=== PATIENT | male | born 1985 | race Caucasian/White ===

== ENCOUNTER 2017-08-05 23:03 | Emergency (ER) | payer BC ==
[~2017-08-05] VITALS: Ht 177.8 cm; Wt 124.0 kg
[~2017-08-05 23:03] MED LIST: NAPR500 PO; Z.0.NO CURRENT MEDS
[2017-08-05 23:20] VITALS: BP 160/97; PULSE 96; RESP 18; TEMP 99; O2SAT 97
[2017-08-05] MEDS ORDERED: IBUP-232 PO (23:37)
--- NOTE | 2017-08-06 01:56 | PD ---
HPI Chief Complaint: Oral / Dental Pain or Problem Time Seen by Provider: 01:40 Travel History International Travel<30 days: No Contact w/Intl Traveler<30days: No Traveled to known affect area: No History of Present Illness HPI The patient is a 31-year-old male that complains of right upper canine tooth pain since Sunday. He states that he has been taking ibuprofen with good relief but started to wear off. He denies any fever. He can feel some slight swelling in the soft tissues around the canine tooth. He has not called a dentist yet. He denies any fever. PFS Past Medical History Diminished Hearing: No ?: Not Social History Alcohol Use: Yes (RARE) Tobacco Use: No Substance Use: No Allergies-Medications (Allergen,Severity, Reaction): Coded Allergies: No Known Allergies (Unverified Adverse Reaction, Unknown, 08/05/17) Reported Meds & Prescriptions Reported Meds & Active Scripts Active Reported Ibuprofen 600 Mg Tab 600 Mg PO Q6H PRN Review of Systems Except as stated in HPI: all other systems reviewed are Neg Physical Exam Narrative GENERAL: Well-nourished, well-developed patient in slight apparent distress with his dental pain. His vital signs show heart rate of 96, blood pressure 160 /97 but are otherwise normal. SKIN: Focused skin assessment warm/dry. HEAD: Normocephalic. EYES: No scleral icterus. No injection or drainage. NECK: Supple, trachea midline. No JVD or lymphadenopathy. CARDIOVASCULAR: Regular rate and rhythm without murmurs, gallops, or rubs. RESPIRATORY: Breath sounds equal bilaterally. No accessory muscle use. GASTROINTESTINAL: Abdomen soft, non-tender, nondistended. MUSCULOSKELETAL: No cyanosis, or edema. BACK: Nontender without obvious deformity. No CVA tenderness. DENTAL: No loose or chipped teeth. No malocclusion. There is exquisite tenderness on the right canine tooth. There is associated soft tissue swelling of the upper lip. No drainable dental abscesses are noted. Data Data Last Documented VS Vital Signs Date Time Temp Pulse Resp B/P (MAP) Pulse Ox O2 Delivery O2 Flow Rate FiO2 08/05/17 23:20 99.0 96 18 160/97 (118) 97 Orders Orders Ed Discharge Order (08/06/17 01:56) Amoxicillin (Trimox) (08/06/17 02:00) MDM Medical Decision Making Medical Screen Exam Complete: Yes Emergency Medical Condition: Yes Medical Record Reviewed: Yes Differential Diagnosis Dental infection, drainable dental abscess, cellulitis, gingivitis Narrative Course The patient has a dental infection. He will be given amoxicillin 875 twice daily for 10 days and is given a refill to give him time to make a dental appointment. He will be given Motrin 803 times a day. He is to follow-up with a dentist. Diagnosis Primary Impression: Dental infection Additional Instructions: The antibiotic is one tablet twice daily. Follow-up with a dentist as soon as possible. Ibuprofen is one tablet 3 times daily. Med/Other Pt SpecificInfo: Prescription(s) given Scripts Ibuprofen (Ibuprofen) 800 Mg Tab 800 MG PO TID, #44 TAB 0 Refills Prov: Chon Yip MD 08/06/17 Amoxicillin (Amoxicillin) 875 Mg Tab 875 MG PO BID for Infection for 10 Days, #20 TAB 0 Refills Prov: Chon Yip MD 08/06/17 Disposition: 01 DISCHARGE HOME Condition: Stable Chon Yip MD Aug 06, 2017 01:56
[2017-08-06] MEDS ORDERED: AMOXICILLIN 875 MG TAB PO ONE (02:00)
[2017-08-06] MEDS ORDERED: IBUP1TAB7 PO (02:03)
[2017-08-06] MEDS ORDERED: AMOX875T PO (02:03)
[2017-08-06] MEDS ORDERED: KETOROLAC TROMETHAMINE 60 MG/2 ML (IM) VIAL IM ONE (02:15)
[2017-08-06 02:24] VITALS: BP 147/88
== END 2017-08-06 02:25 | disposition home or self-care (01) ==
LOC: PHED 23:03
DX: K04.7 Periapical abscess without sinus (principal)
CPT/HCPCS: 96372; 99284; J1885

== ENCOUNTER 2017-12-22 15:13 | Inpatient (IN) | payer BC ==
[2017-12-22] VITALS (9 sets, daily range): BP systolic 127–171; BP diastolic 71–87; PULSE 93–129; RESP 20–26; TEMP 99–103.1; O2SAT 89–95
[~2017-12-22] VITALS: Ht 177.8 cm; Wt 123.0 kg
[~2017-12-22 15:13] MED LIST changes: +AMOX875T PO; +IBUP-232 PO; +IBUP1TAB7 PO; -NAPR500 PO; -Z.0.NO CURRENT MEDS
[2017-12-22] MEDS ORDERED: SODIUM CHLOR 0.9% 1000 ML INJ 1,000 ML IV ONE ×2 (15:45)
[2017-12-22] MEDS ORDERED: ACETAMINOPHEN 325 MG TAB PO ONE ×2 (15:45)
[2017-12-22] MEDS ORDERED: IBUPROFEN 600 MG TAB PO ONE (15:45)
--- NOTE | 2017-12-22 15:51 | PD ---
HPI Chief Complaint: Fever Time Seen by Provider: 15:30 Travel History International Travel<30 days: No Contact w/Intl Traveler<30days: No Traveled to known affect area: No History of Present Illness HPI This patient complains of fever. He has cough which is dry. He has some dyspnea. Symptoms are worse with exertion. Symptoms are severe. Temperature 103. Duration 4 days. He denies medical history. He has no urinary complaints or vomiting or diarrhea or runny nose. He went to an urgent care and had a negative flu test and was sent here. No alleviating factors. PFSH Past Medical History Medical History: Denies Significant Hx Diminished Hearing: No Immunizations Current: Yes Tetanus Vaccination: < 5 Years Influenza Vaccination: No Past Surgical History Surgical History: No Previous Surgery Social History Alcohol Use: Yes (RARE) Tobacco Use: No Substance Use: No Allergies-Medications (Allergen,Severity, Reaction): Coded Allergies: No Known Allergies (Unverified Adverse Reaction, Unknown, 12/22/17) Reported Meds & Prescriptions Reported Meds & Active Scripts Active No Active Prescriptions or Reported Medications Review of Systems General / Constitutional: Positive: Fever Eyes: No: Visual changes HENT: No: Headaches Cardiovascular: No: Chest Pain or Discomfort Respiratory: Positive: Cough, Shortness of Breath Gastrointestinal: No: Abdominal Pain Genitourinary: No: Dysuria Musculoskeletal: No: Pain Skin: No Rash Neurologic: No: Weakness Psychiatric: No: Depression Endocrine: No: Polydipsia Hematologic/Lymphatic: No: Easy Bruising Physical Exam Narrative GENERAL: Well-nourished, well-developed patient who is febrile and short of breath SKIN: Focused skin assessment reveals no rash and nodules. Skin is Warm and dry. HEAD: Atraumatic. Normocephalic. EYES: Pupils equal and round. No scleral icterus. No injection or drainage. ENT: No nasal bleeding or discharge. Mucous membranes pink and moist. No tonsillar exudate NECK: Trachea midline. No JVD. No meningeal signs CARDIOVASCULAR: Regular rate and rhythm. No murmur appreciated. RESPIRATORY: No accessory muscle use. Some left base crackles. Breath sounds equal bilaterally. Occasional wheeze GASTROINTESTINAL: Abdomen soft, non-tender, nondistended. Hepatic and splenic margins not palpable. MUSCULOSKELETAL: No obvious deformities. No clubbing. No cyanosis. No edema. NEUROLOGICAL: Awake and alert. No obvious cranial nerve deficits. Motor grossly within normal limits. Normal speech. PSYCHIATRIC: Appropriate mood and affect; insight and judgment normal. Data Data Last Documented VS Vital Signs Date Time Temp Pulse Resp B/P (MAP) Pulse Ox O2 Delivery O2 Flow Rate FiO2 12/22/17 15:43 129 25 171/77 (108) 89 Nasal Cannula 2.00 12/22/17 15:16 103.1 Orders Orders Sepsis Workup Initiated (12/22/17 ) Complete Blood Count With Diff (12/22/17 15:40) Comprehensive Metabolic Panel (12/22/17 15:40) Lactic Acid Sepsis Protocol (12/22/17 15:40) Urinalysis - C+S If Indicated (12/22/17 15:40) Blood Culture (12/22/17 15:40) Pneumococcal Urinary Antigen (12/22/17 15:40) Legionella Urinary Antigen (12/22/17 15:40) Chest, Single Ap (12/22/17 15:40) Ecg Monitoring (12/22/17 15:40) Iv Access Insert/Monitor (12/22/17 15:40) Oximetry (12/22/17 15:40) Oxygen Administration (12/22/17 15:40) Acetaminophen (Tylenol) (12/22/17 15:45) Acetaminophen (Tylenol) (12/22/17 15:45) Ibuprofen (Motrin) (12/22/17 15:45) Sodium Chlor 0.9% 1000 Ml Inj (Ns 1000 M (12/22/17 15:45) Sodium Chlor 0.9% 1000 Ml Inj (Ns 1000 M (12/22/17 15:45) Ceftriaxone Inj (Rocephin Inj) (12/22/17 15:45) Albuterol-Ipratropium Neb (Duoneb Neb) (12/22/17 16:00) Admit Order (Ed Use Only) (12/22/17 17:05) Labs Laboratory Tests Test 12/22/17 15:40 12/22/17 16:36 White Blood Count 13.1 TH/MM3 Red Blood Count 5.63 MIL/MM3 Hemoglobin 15.6 GM/DL Hematocrit 46.7 % Mean Corpuscular Volume 82.9 FL Mean Corpuscular Hemoglobin 27.7 PG Mean Corpuscular Hemoglobin Concent 33.4 % Red Cell Distribution Width 13.8 % Platelet Count 233 TH/MM3 Mean Platelet Volume 9.8 FL Neutrophils (%) (Auto) 90.0 % Lymphocytes (%) (Auto) 4.4 % Monocytes (%) (Auto) 3.9 % Eosinophils (%) (Auto) 0.1 % Basophils (%) (Auto) 1.6 % Neutrophils # (Auto) 11.8 TH/MM3 Lymphocytes # (Auto) 0.6 TH/MM3 Monocytes # (Auto) 0.5 TH/MM3 Eosinophils # (Auto) 0.0 TH/MM3 Basophils # (Auto) 0.2 TH/MM3 CBC Comment DIFF FINAL Differential Comment Blood Urea Nitrogen 11 MG/DL Creatinine 0.81 MG/DL Random Glucose 124 MG/DL Total Protein 7.4 GM/DL Albumin 3.3 GM/DL Calcium Level 7.7 MG/DL Alkaline Phosphatase 106 U/L Aspartate Amino Transf (AST/SGOT) 16 U/L Alanine Aminotransferase (ALT/SGPT) 31 U/L Total Bilirubin 0.4 MG/DL Sodium Level 135 MEQ/L Potassium Level 3.5 MEQ/L Chloride Level 103 MEQ/L Carbon Dioxide Level 22.3 MEQ/L Anion Gap 10 MEQ/L Estimat Glomerular Filtration Rate 111 ML/MIN Lactic Acid Level 1.1 mmol/L MDM Medical Decision Making Medical Screen Exam Complete: Yes Emergency Medical Condition: Yes Medical Record Reviewed: Yes Differential Diagnosis Sepsis, bacteremia, pneumonia Narrative Course I have reviewed the patient's electronic medical record. This patient arrives with concern for sepsis. He is febrile tachycardic and dyspneic. 2 blood culture sets obtained I gave him 1 g IV Rocephin and labs sent Gave him Tylenol Motrin for fever I reviewed his chest x-ray which suggest a bronchopneumonia type pattern. No diffuse consolidation. No pneumothorax or pulmonary edema Gave him 2 nebulizer treatments White count is 13,000 metabolic profile normal Lactate is normal Patient has acute hypoxic respiratory failure and will require inpatient hospitalization. Seems to have a community acquired pneumonia I reviewed with the hospitalist who will admit On 3 L nasal cannula he has 95% saturation Critical Care Narrative Aggregate critical care time was 35 minutes. Time to perform other separately billable procedures was not included in the critical care time. My time did not include minutes spent treating any other patients simultaneously or on activities that did not directly contribute to the patient's treatment. The services I provided to this patient were to treat and/or prevent clinically significant deterioration that could result in: Cardiopulmonary arrest, hypoxemic brain injury, respiratory collapse I provided critical care services requiring my management, as noted below: Chart data review, documentation time, medication orders and management, vital sign assessments/reviewing monitor data, ordering and reviewing lab tests, ordering and interpreting/reviewing x-rays and diagnostic studies, care of the patient and discussion of the patient with the admitting physicians. Diagnosis Primary Impression: Acute respiratory failure with hypoxia Additional Impression: Community acquired pneumonia Qualified Codes: J18.9 - Pneumonia, unspecified organism Admitting Information Admitting Physician Requests: Admit Scripts No Active Prescriptions or Reported Meds Sean Burgess MD Dec 22, 2017 15:51
[2017-12-22 15:57] LABS: AUTOMATED NEUTROPHIL # 11.8 TH/MM3 (1.8-7.7); BASOPHIL # 0.2 TH/MM3 (0-0.2); BASOPHIL % 1.6 % (0.0-2.0); EOSINOPHIL % 0.1 % (0.0-4.0); HEMATOCRIT 46.7 % (39.0-51.0); HEMOGLOBIN 15.6 GM/DL (13.0-17.0); LYMPH % 4.4 % (9.0-44.0); LYMPHOCYTE # 0.6 TH/MM3 (1.0-4.8); MEAN CELL VOLUME 82.9 FL (80.0-100.0); MEAN CORPUSCULAR HEMOGLOBIN 27.7 PG (27.0-34.0); MEAN CORPUSCULAR HGB CONC 33.4 % (32.0-36.0); MEAN PLATELET VOLUME 9.8 FL (7.0-11.0); MONO % 3.9 % (0.0-8.0); MONOCYTE # 0.5 TH/MM3 (0-0.9); PLATELET COUNT 233 TH/MM3 (150-450); RED BLOOD COUNT 5.63 MIL/MM3 (4.50-5.90); RED CELL DISTRIBUTION WIDTH 13.8 % (11.6-17.2); WHITE BLOOD COUNT 13.1 TH/MM3 (4.0-11.0)
[2017-12-22] MEDS ORDERED: RESP: ALBUTEROL 2.5 MG/IPRATROPIUM 0.5 MG NEB (SCH) NEB ONE (16:00)
[2017-12-22] MEDS: cefTRIAXone INJ 1,000 MG in SODIUM CHLORIDE 0.9% INJ 100 ML IV ONE ×2 (16:12→16:28)
--- NOTE | 2017-12-22 16:16 | RADRPT ---
EXAM DATE: 12/22/2017 3:59 PM EDT AGE/SEX: 32 years / Male INDICATIONS: Fever, cough, short of breath CLINICAL DATA: This is the patient's initial encounter. Patient reports that signs and symptoms have been present for 3 days and indicates a pain score of 0/10. MEDICAL/SURGICAL HISTORY: None. None. COMPARISON: No prior exams available for comparison. FINDINGS: Exam performed at low lung volumes. Subsegmental airspace disease at both lung bases. No effusion. No pneumothorax. Heart size upper limits normal. CONCLUSION: Subsegmental basilar airspace disease. Differential diagnosis includes atelectasis or bronchopneumoni a. Electronically signed by: Manuel Bee MD 12/22/2017 4:15 PM EDT
[2017-12-22 16:56] LABS: CHLORIDE 103 MEQ/L (98-107); SODIUM (NA) 135 MEQ/L (136-145)
[2017-12-22 16:59] LABS: ALBUMIN 3.3 GM/DL (3.4-5.0); BICARBONATE 22.3 MEQ/L (21.0-32.0); CALCIUM 7.7 MG/DL (8.5-10.1); GLUCOSE,RANDOM 124 MG/DL (74-106)
[2017-12-22 17:00] LABS: BLOOD UREA NITROGEN 11 MG/DL (7-18)
[2017-12-22 17:02] LABS: ALT (GPT) 31 U/L (12-78)
[2017-12-22 17:03] LABS: AST (GOT) 16 U/L (15-37); CREATININE 0.81 MG/DL (0.60-1.30); GLOMERULAR FILTRATION RATE 111 ML/MIN (>89)
[2017-12-22 17:04] LABS: TOTAL BILIRUBIN ADULT 0.4 MG/DL (0.2-1.0); TOTAL PROTEIN 7.4 GM/DL (6.4-8.2)
[2017-12-22 17:05] LABS: ALKALINE PHOSPHATASE 106 U/L (45-117)
[2017-12-22] MEDS ORDERED: BISACODYL 10 MG SUPP RECTAL PRN (17:30)
[2017-12-22] MEDS ORDERED: SODIUM CHLORIDE 0.9% FLUSH 10 ML FLUSH IV FLUSH PRN (17:30)
[2017-12-22] MEDS ORDERED: SENNOSIDES 8.6 MG TAB PO PRN (17:30)
[2017-12-22] MEDS ORDERED: NALOXONE HCL 0.4 MG/ML AMP IV PUSH PRN (17:30)
[2017-12-22] MEDS ORDERED: MAGNESIUM HYDROXIDE SUSP 30 ML CUP PO PRN (17:30)
[2017-12-22] MEDS ORDERED: LACTULOSE SYRUP 20 GM/30 ML CUP PO PRN (17:30)
[2017-12-22 17:39] LABS: BILIRUBIN, URINE NEG (NEG); BLOOD, URINE NEG (NEG); GLUCOSE,URINE NEG (NEG); KETONE, URINE 15 mg/dL (NEG); NITRITE,URINE NEG (NEG); URINE COLOR YELLOW (YELLW/STRAW); URINE LEUKOCYTE ESTERASE NEG (NEG)
[2017-12-22 17:47] LABS: RBC, URINE 0-2 /hpf (0-3); SQUAMOUS EPITHELIAL CELL URINE 0-5 /hpf (0-5); WBC, URINE 0-2 /hpf (0-5)
--- NOTE | 2017-12-22 18:17 | HHI.HP ---
[facility] No Primary Care Physician Admission Diagnosis acute hypoxic resp failure, bronchopneumonia Diagnoses: Chief Complaint: Fever, cough. Travel History International Travel<30 Days: No Contact w/Intl Traveler <30 Da: No Traveled to Known Affected Are: No Sepsis Criteria SIRS Criteria (2 or more): Temp > 100.9 or < 96.8, Heart rate over 90, RR > 20 or PaCO2 < 32, WBC > 19778, < 4000 or > 10% bands Criteria Outcome: Meets SIRS criteria, Meets sepsis criteria History of Present Illness Mr. Christianson is a pleasant 32 year old male who works at the [employer] and essentially no medical history presented to the ED on 12/22/2017 due to persistent fever, unproductive cough and dyspnea. On 12/19/2017, he started feeling generalized body ache as well as sore throat. Subsequently, he also started having fever 100 to 101deg F. He denies any chest pain, abdominal pain. Denies any changes in bowel or bladder habits. He went to an urgent care where his flu screen was negative but patient was advised to take tamiflu. Due to persistent fever and unproductive cough, patient decided to come to the ED. In the ED, his O2 sat was 89%, tachypneic, tachycardic, Temp over 103F and leukocytosis. CXR shows bibasilar infiltrates. At the time of this interview, patient is in his room on the med-surg floor on room air and reports feeling better. He denies any high risk behavior. Review of Systems Except as stated in HPI: all other systems reviewed are Neg Past Family Social History Past Medical History No medical history. Past Surgical History No significant surgical history. Reported Medications No medications. Allergies: Coded Allergies: No Known Allergies (Unverified Adverse Reaction, Unknown, 12/22/17) Family History Mother - breast cancer. Social History Drinks alcohol occasionally. Denies using tobacco or illicit drugs. Works in the [employer]. Physical Exam Vital Signs Vital Signs Date Time Temp Pulse Resp B/P (MAP) Pulse Ox O2 Delivery O2 Flow Rate FiO2 12/22/17 17:51 107 20 95 Nasal Cannula 2.00 12/22/17 17:37 100.0 116 20 154/77 (102) 95 Nasal Cannula 2.00 12/22/17 16:21 95 Nasal Cannula 2.00 12/22/17 16:21 95 Nasal Cannula 2.00 12/22/17 16:10 93 Nasal Cannula 2.00 12/22/17 15:43 129 25 171/77 (108) 89 Nasal Cannula 2.00 12/22/17 15:16 103.1 127 26 152/87 (108) 89 Physical Exam GENERAL: This is a well-nourished, well-developed patient, in no apparent distress. SKIN: No rashes, ecchymoses or lesions. Warm and dry. HEAD: Atraumatic. Normocephalic. No temporal or scalp tenderness. EYES: Pupils equal round and reactive. No injection or drainage. ENT: Nose without bleeding, purulent drainage or septal hematoma. Airway patent. NECK: Trachea midline. No lymphadenopathy. Supple, nontender, no meningeal signs. CARDIOVASCULAR: Regular rate and rhythm without murmurs, gallops, or rubs. No JVD. RESPIRATORY: Moderate air entry. Bibasilar crackles. GASTROINTESTINAL: Abdomen soft, non-tender, nondistended. No guarding. MUSCULOSKELETAL: Extremities without clubbing, cyanosis, or edema. NEUROLOGICAL: Awake and alert. Cranial nerves II through XII intact. No focal neurological deficits. Normal speech. Laboratory Laboratory Tests Test 12/22/17 15:40 12/22/17 16:36 12/22/17 17:16 White Blood Count 13.1 Red Blood Count 5.63 Hemoglobin 15.6 Hematocrit 46.7 Mean Corpuscular Volume 82.9 Mean Corpuscular Hemoglobin 27.7 Mean Corpuscular Hemoglobin Concent 33.4 Red Cell Distribution Width 13.8 Platelet Count 233 Mean Platelet Volume 9.8 Neutrophils (%) (Auto) 90.0 Lymphocytes (%) (Auto) 4.4 Monocytes (%) (Auto) 3.9 Eosinophils (%) (Auto) 0.1 Basophils (%) (Auto) 1.6 Neutrophils # (Auto) 11.8 Lymphocytes # (Auto) 0.6 Monocytes # (Auto) 0.5 Eosinophils # (Auto) 0.0 Basophils # (Auto) 0.2 CBC Comment DIFF FINAL Differential Comment Blood Urea Nitrogen 11 Creatinine 0.81 Random Glucose 124 Total Protein 7.4 Albumin 3.3 Calcium Level 7.7 Alkaline Phosphatase 106 Aspartate Amino Transf (AST/SGOT) 16 Alanine Aminotransferase (ALT/SGPT) 31 Total Bilirubin 0.4 Sodium Level 135 Potassium Level 3.5 Chloride Level 103 Carbon Dioxide Level 22.3 Anion Gap 10 Estimat Glomerular Filtration Rate 111 Lactic Acid Level 1.1 Urine Color YELLOW Urine Turbidity CLEAR Urine pH 6.0 Urine Specific [place] 1.025 Urine Protein NEG Urine Glucose (UA) NEG Urine Ketones 15 Urine Occult Blood NEG Urine Nitrite NEG Urine Bilirubin NEG Urine Urobilinogen 0.2 Urine Leukocyte Esterase NEG Urine RBC 0-2 Urine WBC 0-2 Urine Squamous Epithelial Cells 0-5 Urine Bacteria NONE Microscopic Urinalysis Comment CULT NOT INDICATED Date/Time Source Procedure Growth Status 12/22/17 15:45 Blood Peripheral Aerobic Blood Culture Pending Received 12/22/17 15:45 Blood Peripheral Anaerobic Blood Culture Pending Received 12/22/17 17:48 Nasal Washing Influenza Types A,B Antigen (DIDIER) - Final NEGATIVE FOR FLU A AND B ANTIGEN.... Complete 12/22/17 17:16 Urine Clean Catch Legionella Antigen Pending Received 12/22/17 17:16 Urine Clean Catch Streptococcus pneumoniae Antigen (M Pending Received Result Diagram: 12/22/17 1540 12/22/17 1636 Imaging Last Impressions Chest X-Ray 12/22/17 1540 Signed Impressions: CONCLUSION: Subsegmental basilar airspace disease. Differential diagnosis includes atelecta sis or bronchopneumonia. Caprini VTE Risk Assessment Caprini VTE Risk Assessment: No/Low Risk (score <= 1) Caprini Risk Assessment Model Point Value = 1 Point Value = 2 Point Value = 3 Point Value = 5 Age 41-60 Minor surgery BMI > 25 kg/m2 Swollen legs Varicose veins or History of unexplained or recurrent spontaneous Oral contraceptives or hormone replacement Sepsis (< 1 month) Serious lung disease, including pneumonia (< 1 month) Abnormal pulmonary function Acute myocardial infarction Congestive heart failure (< 1 month) History of inflammatory bowel disease Medical patient at bed rest Age 61-74 Arthroscopic surgery Major open surgery (> 45 min) Laparoscopic surgery (> 45 min) Malignancy Confined to bed (> 72 hours) Immobilizing plaster cast Central venous access Age >= 75 History of VTE Family history of VTE Factor V Leiden Prothrombin [id number] Lupus anticoagulant Anticardiolipin antibodies Elevated serum homocysteine Heparin-induced thrombocytopenia Other congenital or acquired thrombophilia Stroke (< 1 month) Elective arthroplasty Hip, pelvis, or leg fracture Acute spinal cord injury (< 1 month) Prophylaxis Regimen Total Risk Factor Score Risk Level Prophylaxis Regimen 0-1 Low Early ambulation 2 Moderate Order ONE of the following: *Sequential Compression Device (SCD) *Heparin 5000 units SQ BID 3-4 Higher Order ONE of the following medications: *Heparin 5000 units SQ TID *Enoxaparin/Lovenox 40 mg SQ daily (WT < 150 kg, CrCl > 30 mL/min) *Enoxaparin/Lovenox 30 mg SQ daily (WT < 150 kg, CrCl > 10-29 mL/min) *Enoxaparin/Lovenox 30 mg SQ BID (WT < 150 kg, CrCl > 30 mL/min) AND/OR *Sequential Compression Device (SCD) 5 or more Highest Order ONE of the following medications: *Heparin 5000 units SQ TID (Preferred with Epidurals) *Enoxaparin/Lovenox 40 mg SQ daily (WT < 150 kg, CrCl > 30 mL/min) *Enoxaparin/Lovenox 30 mg SQ daily (WT < 150 kg, CrCl > 10-29 mL/min) *Enoxaparin/Lovenox 30 mg SQ BID (WT < 150 kg, CrCl > 30 mL/min) AND *Sequential Compression Device (SCD) Assessment and Plan Problem List: (1) Acute respiratory failure with hypoxia ICD Code: J96.01 - Acute respiratory failure with hypoxia Status: Acute (2) Community acquired pneumonia ICD Code: J18.9 - Pneumonia, unspecified organism Status: Acute Assessment and Plan Mr. Christianson is a 32 year old male with no significant medical history presents with high grade fever, cough. He started experiencing body-ache, sore throat and congestion on 12/19/2017. He went to an urgent care today and was found to have high grade fever. Due to persistent fever, he came to the ED. Sepsis (Fever, WBC > 13, HR > 100, suspected infection pneumonia) Probable Influenza Probable superimposed bacterial infection CXR shows bibasilar infiltrates. Pt received Ceftriaxone 1g in the ED which will continue. Also, give Azithromycin 500mg IV today. Start Tamiflu 75mg BID. O2 as needed Full code. Lovenox. Physician Certification 2 Midnight Certification Type: Admission for Inpatient Services Order for Inpatient Services The services are ordered in accordance with Medicare regulations or non- Medicare payer requirements, as applicable. In the case of services not specified as inpatient-only, they are appropriately provided as inpatient services in accordance with the 2-midnight benchmark. Estimated LOS (days): 2 days is the estimated time the patient will need to remain in the hospital, assuming treatment plan goals are met and no additional complications. Post-Hospital Plan: Home Problem Qualifiers (1) Community acquired pneumonia: Qualified Codes: J18.9 - Pneumonia, unspecified organism Israel Powell DO Dec 22, 2017 18:17
[2017-12-22] MEDS: AZITHROMYCIN INJ 500 MG in SODIUM CHLOR 0.9% 250 ML INJ 250 ML IV SCH (19:22)
[2017-12-22] MEDS: ENOXAPARIN SODIUM 40 MG/0.4 ML SYRINGE SQ SCH (19:22)
[2017-12-22] MEDS: SODIUM CHLOR 0.9% 1000 ML INJ 1,000 ML IV SCH (19:29)
[2017-12-22] MEDS: SODIUM CHLORIDE 0.9% FLUSH 10 ML FLUSH IV FLUSH SCH (20:56)
[2017-12-22] MEDS: OSELTAMIVIR PHOSPHATE 75 MG CAP PO SCH (20:56)
[2017-12-22] MEDS: ACETAMINOPHEN 325 MG TAB PO PRN (21:12)
[2017-12-22] MEDS ORDERED: ACETAMINOPHEN 1000 MG/100 ML 100 ML IV ONE (22:30)
[2017-12-22] MEDS ORDERED: ONDANSETRON HCL 4 MG/2 ML VIAL IV PUSH PRN (22:30)
[2017-12-22] MEDS ORDERED: ONDANSETRON HCL 4 MG/2 ML VIAL IV PUSH ONE (22:30)
[2017-12-22] MEDS ORDERED: ACETAMINOPHEN 1000 MG/100 ML 100 ML IV PRN (22:30)
[2017-12-23] VITALS (9 sets, daily range): BP systolic 124–171; BP diastolic 71–80; PULSE 78–119; RESP 20–21; TEMP 97.4–101.6; O2SAT 91–97
[2017-12-23] MEDS: SODIUM CHLOR 0.9% 1000 ML INJ 1,000 ML IV SCH ×3 (04:48→23:48)
[2017-12-23 06:22] LABS: AUTOMATED NEUTROPHIL # 10.2 TH/MM3 (1.8-7.7); BASOPHIL % 0.3 % (0.0-2.0); HEMATOCRIT 39.5 % (39.0-51.0); LYMPH % 6.2 % (9.0-44.0); LYMPHOCYTE # 0.7 TH/MM3 (1.0-4.8); MEAN CELL VOLUME 83.3 FL (80.0-100.0); MEAN CORPUSCULAR HEMOGLOBIN 28.7 PG (27.0-34.0); MEAN CORPUSCULAR HGB CONC 34.4 % (32.0-36.0); MEAN PLATELET VOLUME 9.5 FL (7.0-11.0); MONO % 5.3 % (0.0-8.0); MONOCYTE # 0.6 TH/MM3 (0-0.9); NEUT % 88.2 % (16.0-70.0); PLATELET COUNT 190 TH/MM3 (150-450); RED BLOOD COUNT 4.75 MIL/MM3 (4.50-5.90); RED CELL DISTRIBUTION WIDTH 13.7 % (11.6-17.2); WHITE BLOOD COUNT 11.5 TH/MM3 (4.0-11.0)
[2017-12-23 06:30] LABS: HEMOGLOBIN 13.6 GM/DL (13.0-17.0)
[2017-12-23 06:31] LABS: CALCIUM 7.7 MG/DL (8.5-10.1)
[2017-12-23 06:32] LABS: BICARBONATE 22.5 MEQ/L (21.0-32.0)
[2017-12-23 06:35] LABS: CREATININE 0.68 MG/DL (0.60-1.30)
[2017-12-23] MEDS: SODIUM CHLORIDE 0.9% FLUSH 10 ML FLUSH IV FLUSH SCH ×2 (08:03→21:03)
[2017-12-23] MEDS: OSELTAMIVIR PHOSPHATE 75 MG CAP PO SCH ×2 (08:03→21:03)
[2017-12-23] MEDS ORDERED: cefTRIAXone INJ 1,000 MG in SODIUM CHLORIDE 0.9% INJ 100 ML IV SCH (09:00)
--- NOTE | 2017-12-23 09:48 | HHI.PR ---
Subjective Remarks Follow-up for likely flu and post flu bacterial pneumonia. Patient is currently on 2 L of oxygen via nasal cannula. He reports some cough earlier today. He also had fever overnight. No chest pain, abdominal pain. Tolerating diet well. Objective Vitals Vital Signs Date Time Temp Pulse Resp B/P (MAP) Pulse Ox O2 Delivery O2 Flow Rate FiO2 12/23/17 08:00 97.4 98 21 141/79 (99) 94 12/23/17 04:00 101.6 97 20 171/79 (109) 91 12/23/17 00:00 101.6 119 20 128/71 (90) 91 12/22/17 22:23 102.8 12/22/17 20:00 93 12/22/17 19:39 95 Nasal Cannula 3.00 12/22/17 18:30 99.0 97 20 127/71 (89) 91 12/22/17 17:51 107 20 95 Nasal Cannula 2.00 12/22/17 17:37 100.0 116 20 154/77 (102) 95 Nasal Cannula 2.00 12/22/17 16:21 95 Nasal Cannula 2.00 12/22/17 16:21 95 Nasal Cannula 2.00 12/22/17 16:10 93 Nasal Cannula 2.00 12/22/17 15:43 129 25 171/77 (108) 89 Nasal Cannula 2.00 12/22/17 15:16 103.1 127 26 152/87 (108) 89 I/O 12/22/17 12/22/17 12/22/17 12/23/17 12/23/17 12/23/17 07:00 15:00 23:00 07:00 15:00 23:00 Intake Total 2350 ml 1280 ml 120 ml Output Total 200 ml Balance 2150 ml 1280 ml 120 ml Intake Oral 180 ml 120 ml IV Total 2350 ml 1100 ml Output Urine Total 200 ml # Voids 1 2 # Bowel Movements 2 Result Diagram: 12/23/17 0550 12/23/17 0550 Imaging Last Impressions Chest X-Ray 12/22/17 1540 Signed Impressions: CONCLUSION: Subsegmental basilar airspace disease. Differential diagnosis includes atelecta sis or bronchopneumonia. Objective Remarks GENERAL: Alert, oriented 3, NAD. SKIN: Warm and dry. HEAD: Normocephalic. EYES: No scleral icterus. No injection or drainage. NECK: Supple, trachea midline. No JVD or lymphadenopathy. CARDIOVASCULAR: Regular rate and rhythm without murmurs, gallops, or rubs. RESPIRATORY: Moderate air entry, bibasilar crackles. GASTROINTESTINAL: Abdomen soft, non-tender, nondistended. MUSCULOSKELETAL: No cyanosis, or edema. BACK: Nontender without obvious deformity. No CVA tenderness. Procedures None. A/P Problem List: (1) Acute respiratory failure with hypoxia ICD Code: J96.01 - Acute respiratory failure with hypoxia Status: Acute (2) Community acquired pneumonia ICD Code: J18.9 - Pneumonia, unspecified organism Status: Acute Assessment and Plan Mr. Christianson is a 32 year old male with no significant medical history presents with high grade fever, cough. He started experiencing body-ache, sore throat and congestion on 12/19/2017. He went to an urgent care today and was found to have high grade fever. Due to persistent fever, he came to the ED. Sepsis (Fever, WBC > 13, HR > 100, suspected infection pneumonia) Probable Influenza Probable superimposed bacterial infection CXR shows bibasilar infiltrates. Will start patient on Linezolid 600mg IV BID and continue Azithromycin 500mg IV Qday. Continue Tamiflu 75mg BID. O2 as needed If he continues to have fever, will consider CT Chest. Full code. Lovenox. Problem Qualifiers (1) Community acquired pneumonia: Qualified Codes: J18.9 - Pneumonia, unspecified organism Israel Powell DO Dec 23, 2017 09:48
[2017-12-23] MEDS: LINEZOLID 600 MG PREMIX 300 ML IV SCH ×2 (10:09→21:04)
[2017-12-23] MEDS: ACETAMINOPHEN 325 MG TAB PO PRN ×2 (11:20→17:28)
[2017-12-23] MEDS: ENOXAPARIN SODIUM 40 MG/0.4 ML SYRINGE SQ SCH (16:49)
[2017-12-23] MEDS: AZITHROMYCIN INJ 500 MG in SODIUM CHLOR 0.9% 250 ML INJ 250 ML IV SCH (16:49)
[2017-12-23] MEDS ORDERED: AZIT500T2 PO (22:19)
[2017-12-23] MEDS ORDERED: LINE1TAB PO (22:19)
[2017-12-23] MEDS ORDERED: OSEL75 PO (22:19)
[2017-12-24] VITALS (9 sets, daily range): BP systolic 121–135; BP diastolic 76–86; PULSE 53–95; RESP 18–24; TEMP 97–99.8; O2SAT 90–93
[2017-12-24] MEDS: ACETAMINOPHEN 325 MG TAB PO PRN (07:19)
[2017-12-24] MEDS: SODIUM CHLORIDE 0.9% FLUSH 10 ML FLUSH IV FLUSH SCH ×2 (07:19→22:18)
[2017-12-24] MEDS: OSELTAMIVIR PHOSPHATE 75 MG CAP PO SCH ×2 (07:19→22:19)
[2017-12-24] MEDS: LINEZOLID 600 MG PREMIX 300 ML IV SCH (10:00)
--- NOTE | 2017-12-24 14:08 | HHI.PR ---
Subjective Remarks Follow-up for likely flu and post flu bacterial pneumonia. Patient is currently resting in bed, no acute concerns. His oxygenation remains somewhat low on room air. He is using 1-2 L of oxygen. No fever or chills. Tolerating diet well. T-max was 99.8F. Objective Vitals Vital Signs Date Time Temp Pulse Resp B/P (MAP) Pulse Ox O2 Delivery O2 Flow Rate FiO2 12/24/17 11:30 90 21 12/24/17 08:00 Nasal Cannula 3.00 12/24/17 04:00 98.5 95 24 134/80 (98) 90 12/24/17 00:03 20 90 12/24/17 00:00 99.8 93 20 131/79 (96) 92 12/23/17 21:00 92 12/23/17 20:00 98.2 79 20 124/77 (93) 96 12/23/17 19:21 95 Nasal Cannula 3.00 12/23/17 16:00 98.3 86 21 141/79 (99) 97 I/O 12/23/17 12/23/17 12/23/17 12/24/17 12/24/17 12/24/17 06:59 14:59 22:59 06:59 14:59 22:59 Intake Total 1280 ml 120 ml 2370 ml 1980 ml Output Total 1300 ml Balance 1280 ml 120 ml 1070 ml 1980 ml Intake Oral 180 ml 120 ml 1000 ml 480 ml IV Total 1100 ml 1370 ml 1500 ml Output Urine Total 1300 ml # Voids 2 3 # Bowel Movements 2 1 1 Result Diagram: 12/23/17 0550 12/23/17 0550 Imaging Last Impressions Chest X-Ray 12/22/17 1540 Signed Impressions: CONCLUSION: Subsegmental basilar airspace disease. Differential diagnosis includes atelecta sis or bronchopneumonia. Objective Remarks GENERAL: Alert, oriented 3, NAD. SKIN: Warm and dry. HEAD: Normocephalic. EYES: No scleral icterus. No injection or drainage. NECK: Supple, trachea midline. No JVD or lymphadenopathy. CARDIOVASCULAR: Regular rate and rhythm without murmurs, gallops, or rubs. RESPIRATORY: Moderate air entry, bibasilar crackles. GASTROINTESTINAL: Abdomen soft, non-tender, nondistended. MUSCULOSKELETAL: No cyanosis, or edema. BACK: Nontender without obvious deformity. No CVA tenderness. Procedures None. A/P Problem List: (1) Acute respiratory failure with hypoxia ICD Code: J96.01 - Acute respiratory failure with hypoxia Status: Acute (2) Community acquired pneumonia ICD Code: J18.9 - Pneumonia, unspecified organism Status: Acute Assessment and Plan Mr. Christianson is a 32 year old male with no significant medical history presents with high grade fever, cough. He started experiencing body-ache, sore throat and congestion on 12/19/2017. He went to an urgent care today and was found to have high grade fever. Due to persistent fever, he came to the ED. Sepsis (Fever, WBC > 13, HR > 100, suspected infection pneumonia) Probable Influenza Probable superimposed bacterial infection CXR shows bibasilar infiltrates. Continue linezolid 600mg BID and continue Azithromycin 500mg Qday. We will switch antibiotics to p.o. Continue Tamiflu 75mg BID. Wean off oxygen as much as possible. Encouraged patient to use incentive spirometry. Full code. Lovenox. Problem Qualifiers (1) Community acquired pneumonia: Qualified Codes: J18.9 - Pneumonia, unspecified organism Israel Powell DO Dec 24, 2017 14:08
[2017-12-24] MEDS ORDERED: predniSONE 20 MG TAB PO ONE (14:15)
[2017-12-24] MEDS: AZITHROMYCIN 250 MG TAB PO SCH (14:39)
[2017-12-24] MEDS: ENOXAPARIN SODIUM 40 MG/0.4 ML SYRINGE SQ SCH (17:06)
[2017-12-24] MEDS ORDERED: ALUMINUM/MAGNESIUM/SIMETH 30 ML CUP PO PRN (22:00)
[2017-12-24] MEDS: predniSONE 20 MG TAB PO SCH (22:19)
[2017-12-24] MEDS: LINEZOLID 600 MG TAB PO SCH (22:19)
[2017-12-25] VITALS (7 sets, daily range): BP systolic 105–126; BP diastolic 59–86; PULSE 82–91; RESP 20; TEMP 96.4–98.3; O2SAT 92–94
[2017-12-25] MEDS: OSELTAMIVIR PHOSPHATE 75 MG CAP PO SCH ×2 (08:34→22:34)
[2017-12-25] MEDS: AZITHROMYCIN 250 MG TAB PO SCH (08:35)
[2017-12-25] MEDS: predniSONE 20 MG TAB PO SCH ×2 (08:35→22:34)
[2017-12-25] MEDS: LINEZOLID 600 MG TAB PO SCH ×2 (08:35→22:34)
[2017-12-25] MEDS: SODIUM CHLORIDE 0.9% FLUSH 10 ML FLUSH IV FLUSH SCH ×2 (08:36→22:34)
[2017-12-25] MEDS: RESP: ALBUTEROL 2.5 MG/IPRATROPIUM 0.5 MG NEB (PRN) NEB ×2 (11:10→20:22)
[2017-12-25] MEDS ORDERED: ACETAMINOPHEN 325 MG TAB PO PRN (11:15)
[2017-12-25] MEDS ORDERED: ACETAMINOPHEN 500 MG CPLT PO PRN (11:15)
--- NOTE | 2017-12-25 11:51 | HHI.PR ---
Subjective Remarks Patient seen and evaluated in follow-up for increased work of breathing, hypoxemia and respiratory failure with acute pneumonia. Still tachypneic and hypoxemic today. Working hard to breathe Objective Vitals Vital Signs Date Time Temp Pulse Resp B/P (MAP) Pulse Ox O2 Delivery O2 Flow Rate FiO2 12/25/17 11:19 96.8 82 20 122/74 (90) 92 12/25/17 07:52 94 Nasal Cannula 2.00 12/25/17 07:31 96.4 86 20 118/75 (89) 92 12/25/17 00:00 97.8 91 20 126/59 (81) 93 12/24/17 21:00 93 Nasal Cannula 2.00 12/24/17 20:55 72 12/24/17 20:00 98.4 89 20 135/86 (102) 93 12/24/17 12:00 97.0 71 18 121/84 (96) 92 I/O 12/24/17 12/24/17 12/24/17 12/25/17 12/25/17 12/25/17 07:00 15:00 23:00 07:00 15:00 23:00 Intake Total 1980 ml 1100 ml 1240 ml Balance 1980 ml 1100 ml 1240 ml Intake Oral 480 ml 1240 ml IV Total 1500 ml 1100 ml # Voids 3 6 # Bowel Movements 1 5 Result Diagram: 12/23/17 0550 12/23/17 0550 Imaging Last Impressions Chest X-Ray 12/22/17 1540 Signed Impressions: CONCLUSION: Subsegmental basilar airspace disease. Differential diagnosis includes atelecta sis or bronchopneumonia. Procedures None. A/P Problem List: (1) Acute respiratory failure with hypoxia ICD Code: J96.01 - Acute respiratory failure with hypoxia Status: Acute Plan: Patient still on 2 L O2 Continues to work hard to breathe CTA pending (2) Community acquired pneumonia ICD Code: J18.9 - Pneumonia, unspecified organism Status: Acute Plan: Continue Zyvox and azithromycin Empiric Tamiflu Discharge Planning Home pending progress Problem Qualifiers (1) Community acquired pneumonia: Qualified Codes: J18.9 - Pneumonia, unspecified organism Kellen Chang MD Dec 25, 2017 11:51
[2017-12-25] MEDS: ENOXAPARIN SODIUM 40 MG/0.4 ML SYRINGE SQ SCH (17:37)
[2017-12-25] MEDS ORDERED: IOHEXOL 350 MG/ML 10 ML VIAL (for RAD DIAG) IVCONTRAST ONE (23:01)
--- NOTE | 2017-12-25 23:28 | RADRPT ---
EXAM DATE: 12/25/2017 11:04 PM EDT AGE/SEX: 32 years / Male INDICATIONS: Difficulty breathing and hypoxemia. CLINICAL DATA: This is the patient's initial encounter. Patient reports that signs and symptoms have been present for 3 days and indicates a pain score of 0/10. MEDICAL/SURGICAL HISTORY: None. None. RADIATION DOSE: 21.72 CTDI (mGy) COMPARISON: No prior exams available for comparison. TECHNIQUE: Volumetric scanning was performed using a multi-row detector CT scanner during bolus infu prerna of 65 ml Omnipaque 350 (iohexol) nonionic water-soluble contrast as a single exam dose. The javier a was post processed with a variety of visualization algorithms including full volume maximum intensi ty projection and sliding thin slab reformation. Using automated exposure control and adjustment of t he mA and/or kV according to patient size, radiation dose was kept as low as reasonably achievable to obtain optimal diagnostic quality images. DICOM format image data is available electronically for r eview and comparison. FINDINGS: Pulmonary Arteries: No filling defects are seen in the pulmonary arteries out to the subsegmental ve ssels. The left and right pulmonary arteries are normal in diameter. Lung: There is a mosaic attenuation pattern seen in the lower lungs. There is further alveolar conso lidation seen in the lower lobes bilaterally being worse on the right. Effusion: None. Mediastinum: No evidence of mediastinal or hilar adenopathy. Other: The axilla is unremarkable. CONCLUSION: 1. No pulmonary embolus. 2. Bibasilar areas of consolidation concerning for areas of pneumonia being worse on the right. Electronically signed by: Guillermo Bailey MD 12/25/2017 11:27 PM EDT
[2017-12-26] VITALS: BP 126/68; PULSE 82; RESP 20; TEMP 96.8; O2SAT 94
[2017-12-26 06:32] LABS: AUTOMATED NEUTROPHIL # 6.7 TH/MM3 (1.8-7.7); BASOPHIL % 0.3 % (0.0-2.0); EOSINOPHIL % 0.1 % (0.0-4.0); HEMATOCRIT 42.5 % (39.0-51.0); HEMOGLOBIN 14.2 GM/DL (13.0-17.0); LYMPH % 18.6 % (9.0-44.0); LYMPHOCYTE # 1.6 TH/MM3 (1.0-4.8); MEAN CELL VOLUME 83.8 FL (80.0-100.0); MEAN CORPUSCULAR HGB CONC 33.5 % (32.0-36.0); MEAN PLATELET VOLUME 9.2 FL (7.0-11.0); MONO % 3.5 % (0.0-8.0); MONOCYTE # 0.3 TH/MM3 (0-0.9); NEUT % 77.5 % (16.0-70.0); PLATELET COUNT 260 TH/MM3 (150-450); RED BLOOD COUNT 5.07 MIL/MM3 (4.50-5.90); RED CELL DISTRIBUTION WIDTH 13.4 % (11.6-17.2); WHITE BLOOD COUNT 8.6 TH/MM3 (4.0-11.0)
[2017-12-26 07:24] VITALS: O2SAT 96
[2017-12-26] MEDS: AZITHROMYCIN 250 MG TAB PO SCH (07:59)
[2017-12-26] MEDS: predniSONE 20 MG TAB PO SCH (07:59)
[2017-12-26] MEDS: LINEZOLID 600 MG TAB PO SCH (07:59)
[2017-12-26] MEDS: OSELTAMIVIR PHOSPHATE 75 MG CAP PO SCH (07:59)
[2017-12-26] MEDS: SODIUM CHLORIDE 0.9% FLUSH 10 ML FLUSH IV FLUSH SCH (07:59)
[2017-12-26 08:00] VITALS: BP 128/84; PULSE 73; RESP 19; TEMP 96.4; O2SAT 94
--- NOTE | 2017-12-26 11:24 | HHI.DCPOC ---
Discharge Care Plan Diagnosis: (1) Community acquired pneumonia (2) Acute respiratory failure with hypoxia Goals to Promote Your Health * To prevent worsening of your condition and complications * To maintain your health at the optimal level Directions to Meet Your Goals Take your medications as prescribed Follow your dietary instruction Follow activity as directed Keep your appointments as scheduled Take your immunizations and boosters as scheduled If your symptoms worsen call your PCP, if no PCP go to Urgent Care Center or Emergency Room Smoking is Dangerous to Your Health. Avoid second hand smoke Call the 24-hour hour crisis hotline for domestic abuse at Kellen Chang MD Dec 26, 2017 11:24
--- NOTE | 2017-12-26 11:27 | HHI.DS ---
Discharge Summary Admission Date Dec 22, 2017 at 17:08 Discharge Date: Dec 26, 2017 Admitting Diagnosis acute hypoxic resp failure, bronchopneumonia (1) Acute respiratory failure with hypoxia ICD Code: J96.01 - Acute respiratory failure with hypoxia Status: Acute (2) Community acquired pneumonia ICD Code: J18.9 - Pneumonia, unspecified organism Status: Acute Procedures None. Brief History - From Admission Mr. 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 On Sun12/19/2017, he started feeling generalized body ache as well as sore throat. Subsequently, he also started having fever 100 to 101deg F. He denies any chest pain, abdominal pain. Denies any changes in bowel or bladder habits. He went to an urgent care where his flu screen was negative but patient was advised to take tamiflu. Due to persistent fever and unproductive cough, patient decided to come to the ED. In the ED, his O2 sat was 89%, tachypneic, tachycardic, Temp over 103F and leukocytosis. CXR shows bibasilar infiltrates. At the time of this interview, patient is in his room on the [facility] floor on room air and reports feeling better. He denies any high risk behavior. CBC/BMP: 12/26/17 0535 12/23/17 0550 Significant Findings Laboratory Tests Test 12/24/17 23:00 12/25/17 12:40 12/26/17 05:35 Neutrophils (%) (Auto) 77.5 % (16.0-70.0) Imaging Last Impressions CT Angiography 12/25/17 0000 Signed Impressions: CONCLUSION: 1. No pulmonary embolus. 2. Bibasilar areas of consolidation concerning for areas of pneumonia being wo rse on the right. Chest X-Ray 12/22/17 1540 Signed Impressions: CONCLUSION: Subsegmental basilar airspace disease. Differential diagnosis includes atelecta sis or bronchopneumonia. PE at Discharge GENERAL: Alert, oriented 3, NAD. SKIN: Warm and dry. HEAD: Normocephalic. EYES: No scleral icterus. No injection or drainage. NECK: Supple, trachea midline. No JVD or lymphadenopathy. CARDIOVASCULAR: Regular rate and rhythm without murmurs, gallops, or rubs. RESPIRATORY: Moderate air entry, bibasilar crackles. GASTROINTESTINAL: Abdomen soft, non-tender, nondistended. MUSCULOSKELETAL: No cyanosis, or edema. BACK: Nontender without obvious deformity. No CVA tenderness. Pt update on day of discharge DOing better I feel 100% results d/w patient and spouse Hospital Course Patient treated for pneumonia and resp failure did better after a few days of abx and nebs hypoxemia resolved Pt Condition on Discharge: Good Discharge Disposition: Discharge Home Discharge Time: <= 30 minutes Discharge Instructions DIET: Follow Instructions for: As Tolerated, No Restrictions Activities you can perform: Regular-No Restrictions Follow up Referrals: PCP Follow-up - 1 Week New Medications: Azithromycin (Azithromycin) 500 Mg Tab 500 MG PO DAILY for Infection, #3 TAB 0 Refills Linezolid (Linezolid) 600 Mg Tab 600 MG PO Q12H for Infection, #12 TAB 0 Refills Oseltamivir (Tamiflu) 75 Mg Cap 75 MG PO BID for Infection, #8 Kellen Finley MD Dec 26, 2017 11:27
[2017-12-26 12:00] VITALS: BP 133/94; PULSE 95; RESP 19; TEMP 97.5; O2SAT 94
== END 2017-12-26 13:30 | disposition home or self-care (01) | DRG 871 ==
LOC: PHED 15:13 → PHEDA 17:08 → PH3B 17:55
PROVIDERS: ADMIT Hospitalist; ATTEND Hospitalist
DX: A41.9 Sepsis, unspecified organism (principal); J18.9 Pneumonia, unspecified organism; J96.01 Acute respiratory failure with hypoxia
CPT/HCPCS: 71045; 71275; 80048; 80053; 81001; 83605; 85025; 87040; 87070; 87205; 87389; 87449; 87493; 87804; 94150; 94640; 94664; 96361; 96365; G0475; J0131; J0456; J0696; J1650; J2020; J2405; J7030; J7050; J7512; Q9967